=== PATIENT | female | born 1955 | race Caucasian/White ===

== ENCOUNTER → 2018-02-21 | Outpatient (CLI) | payer MEDICARE ==
--- NOTE | 2018-02-21 15:46 | XR ---
EXAMINATION TYPE: XR foot complete RT DATE OF EXAM: 02/21/2018 CLINICAL HISTORY: Right foot pain after fall injury 2 weeks ago. TECHNIQUE: Frontal, lateral, and oblique images of the right foot are obtained. COMPARISON: None FINDINGS: There is no acute fracture/dislocation evident in the right foot. There is flexion and jules us positioning distal third through fifth toes. There is moderate to large size inferior calcaneal sp ur. Some calcification along distal Achilles tendon is noted. Mild diffuse subcutaneous edema is pres ent. IMPRESSION: There is no acute fracture or dislocation in the right foot.
== END | disposition home or self-care (01) ==
LOC: RADXRYALE 15:29
PROVIDERS: ATTEND Internal Medicine
DX: M79.671 Pain in right foot (principal)

== ENCOUNTER → 2018-05-12 | Outpatient (CLI) | payer MEDICARE ==
--- NOTE | 2018-05-12 08:00 | MR ---
EXAMINATION TYPE: MR knee LT wo con DATE OF EXAM: 05/12/2018 COMPARISON: NONE HISTORY: Pain in left knee per order. Recent fall injury with pain, swelling, and locking sensation p er patient. TECHNIQUE: Multiplanar, multisequence images of the knee is performed without IV contrast. FINDINGS: Exam noted suboptimal finger to patient's large body habitus MEDIAL MENISCUS: Anterior horn is intact without tear. Posterior horn has oblique signal extending to superior and inferior articular surfaces sagittal image 20. LATERAL MENISCUS: Anterior and posterior horns are intact without tear. CRUCIATE LIGAMENTS: The anterior and posterior cruciate ligaments are intact. Increased signal and th ickening of the anterior cruciate ligament is noted. COLLATERAL LIGAMENTS: The medial collateral ligament and lateral collateral ligament complex are inta ct. There is increased fluid signal surrounding medial collateral ligament particularly more anterior fibers. EXTENSOR MECHANISM: Visualized quadriceps and patellar tendons are intact. EFFUSION: There is fairly moderate to large size suprapatellar joint effusion. POPLITEAL CYST: There is moderate size popliteal/mckinley cyst measuring 5.8 cm long axis sagittal image 18 with ill-defined surrounding fluid extending posteriorly and inferiorly. TRICOMPARTMENT SPACES: There is moderate to severe narrowing patellofemoral compartment with mild spu rring. There is mild to moderate narrowing medial tibiofemoral compartment with mild spurring and mil d narrowing and spurring lateral tibiofemoral compartment. CARTILAGE: Chondromalacia patella is present as there is full-thickness cartilaginous loss along post erior patellar pole. There is thinning of articular cartilage medial tibiofemoral compartment without full-thickness loss. BONE MARROW SIGNAL: A 9 mm well-defined lesion of T1 hypointensity and T2 hyperintensity distal later al femoral metaphysis coronal image 12 is presumed benign. There is reactive edema and/or subchondral cystic change along posterior patellar pole. OTHER: No additional significant abnormality is appreciated. IMPRESSION: 1. Tricompartment degenerative changes with moderate to advanced patellofemoral joint arthropathy and full-thickness chondromalacia patella with reactive osseous changes noted as detailed above. 2. Mild to moderate MCL sprain injury. 3. Full-thickness tear posterior horn of medial meniscus. 4. Myxoid degeneration ACL. 5. Moderate to large size suprapatellar joint effusion. 6. Moderate-sized leaking popliteal cyst.
== END | disposition home or self-care (01) ==
LOC: RADMRIMAIN 07:09
PROVIDERS: ATTEND Orthopaedic Surgery
DX: S83.412A Sprain of medial collateral ligament of left knee, initial encounter (principal); S83.242A Other tear of medial meniscus, current injury, left knee, initial encounter; M17.12 Unilateral primary osteoarthritis, left knee; M22.42 Chondromalacia patellae, left knee; M71.22 Synovial cyst of popliteal space [Baker], left knee

== ENCOUNTER 2018-07-12 18:28 | Emergency (ER) | payer MEDICARE ==
[2018-07-12 18:38] VITALS: TEMP 97.8
--- NOTE | 2018-07-12 18:53 | ED ---
Recheck HPI - General Chief Complaint: Recheck/Abnormal Lab/Rx Stated Complaint: High BP Time Seen by Provider: 07/12/18 18:50 Source: patient, RN notes reviewed, old records reviewed Mode of arrival: ambulatory Limitations: no limitations - History of Present Illness Initial Comments: This is a 8-year-old female the ER for evaluation. She presents today for evaluation of elevated blood pressure. She states she is always and borderline hypertensive although she takes no medication for blood pressure. Patient was seen her dentist IN the last 2 days to evaluate possibly to extract the tooth, blood pressure was abnormally high yesterday she went home to try and rest and even higher today. Patient denies any symptoms, is asymptomatic with no com plaints of shortness of breath chest pain headache or abdominal pain. MD Complaint: other (Abnormal blood pressure) -: unknown (At least 2 days) Returns Today for: Called Because of Abnormal Lab/Test (Sent to ER for evaluation of abnormal blood pressure) Symptoms Since Prior Visit: no new symptoms Associated Symptoms: none - Related Data Home Medications Medication Instructions Recorded Confirmed Acetaminophen Tab [Tylenol Tab] 1,000 mg PO Q6H PRN 07/12/18 07/12/18 Amoxicillin 500 mg PO Q8H 07/12/18 07/12/18 Fluticasone Nasal [place] [Flonase 2 spr EA NOSTRIL DAILY 07/12/18 07/12/18 Nasal [place]] Ibuprofen [Motrin] 800 mg PO Q6H PRN 07/12/18 07/12/18 Loratadine [Claritin] 10 mg PO DAILY 07/12/18 07/12/18 Magnesium Citrate 125 mg PO DAILY 07/12/18 07/12/18 Multivitamins, Thera [Multivitamin 1 tab PO DAILY 07/12/18 07/12/18 (formulary)] Allergies Allergy/AdvReac Type Severity Reaction Status Date / Time No Known Allergies Allergy Verified 07/12/18 19:03 Review of Systems ROS Statement: Those systems with pertinent positive or pertinent negative responses have been documented in the HPI. ROS Other: All systems not noted in ROS Statement are negative. Past Medical History Past Medical History: No Reported History History of Any Multi-Drug Resistant Organisms: None Reported Past Surgical History: Cholecystectomy, Hysterectomy Past Psychological History: No Psychological Hx Reported Smoking Status: Current every day smoker Past Alcohol Use History: Occasional Past Drug Use History: None Reported General Exam Limitations: no limitations General appearance: alert, in no apparent distress Head exam: Present: atraumatic, normocephalic, normal inspection Eye exam: Present: normal appearance, PERRL, EOMI. Absent: scleral icterus, conjunctival injection, periorbital swelling ENT exam: Present: normal exam, mucous membranes moist Neck exam: Present: normal inspection. Absent: tenderness, meningismus, lymphadenopathy Respiratory exam: Present: normal lung sounds bilaterally. Absent: respiratory distress, wheezes, rales, rhonchi, stridor Cardiovascular Exam: Present: regular rate, normal rhythm, normal heart sounds. Absent: systolic murmur, diastolic murmur, rubs, gallop, clicks GI/Abdominal exam: Present: soft, normal bowel sounds. Absent: distended, tend erness, guarding, rebound, rigid Extremities exam: Present: normal inspection, full ROM, normal capillary refill. Absent: tenderness, pedal edema, joint swelling, calf tenderness Back exam: Present: normal inspection Neurological exam: Present: alert, oriented X3, CN II-XII intact Psychiatric exam: Present: normal affect, normal mood Skin exam: Present: warm, dry, intact, normal color. Absent: rash Course Vital Signs 07/12/18 07/12/18 18:35 20:15 Temperature 97.8 F Pulse Rate 66 54 L Respiratory 16 20 Rate Blood Pressure 208/97 197/83 O2 Sat by Pulse 100 96 Oximetry - Reevaluation(s) Reevaluation #1: 07/12/18 20:00 Medical records reviewed Reevaluation #2: 07/12/18 20:00 Patient's blood pressures improved here in the ER Reevaluation #3: 07/12/18 20:00 Spoke with patient regarding hypertension, patient can be discharged home with blood pressure medication Medical Decision Making - Medical Decision Making 52 female the ER with hypertension, new onset hypertension needing treatment with 2 positive elevated blood pressure readings at separate by date and time. will discharge on blood pressure medication - EKG Data -: EKG Interpreted by Me (EKG shows sinus tachycardia rate of 56, IL 154, QRS 76, QTc 424) Disposition Clinical Impression: Hypertension Disposition: HOME SELF-CARE Condition: Good Instructions (If sedation given, give patient instructions): Hypertension (ED) Is patient prescribed a controlled substance at d/c from ED?: No Referrals: Soila Mcgregor MD [Primary Care Provider] - 1-2 days
[2018-07-12] MEDS ORDERED: SODIUM CHLORIDE 0.9% 1,000 ML IV STA (19:34)
[2018-07-12] MEDS ORDERED: LABETALOL SYRINGE 5 MG/ML IVP STA (19:38)
[2018-07-12 20:34] LABS: Anisocytosis Slight; Basophils # (A) 0.1 k/uL (0-0.2); Basophils % (A) 1 %; Eosinophils # (A) 0.2 k/uL (0-0.7); Eosinophils % (A) 3 %; HCT 42.1 % (34.0-46.0); HGB 12.9 gm/dL (11.4-16.0); Hypochromasia Slight; Lymphocytes # (A) 2.9 k/uL (1.0-4.8); Lymphocytes % (A) 39 %; MCH 26.6 pg (25.0-35.0); MCHC 30.6 g/dL (31.0-37.0); Mean Platelet Volume 8.9; Monocytes # (A) 0.4 k/uL (0-1.0); Monocytes % (A) 5 %; Neutrophils # (A) 3.7 k/uL (1.3-7.7); Neutrophils % (A) 50 %; Platelet Count 242 k/uL (150-450); RBC 4.84 m/uL (3.80-5.40); RDW 16.5 % (11.5-15.5); WBC 7.4 k/uL (3.8-10.6)
[2018-07-12 20:44] LABS: ALT 41 U/L (9-52); AST 42 U/L (14-36); Albumin 3.9 g/dL (3.5-5.0); Alkaline Phosphatase 114 U/L (38-126); Anion Gap 9 mmol/L; Blood Urea Nitrogen 14 mg/dL (7-17); Calcium 9.2 mg/dL (8.4-10.2); Carbon Dioxide 23 mmol/L (22-30); Chloride 108 mmol/L (98-107); Glucose 87 mg/dL (74-99); Magnesium 2.2 mg/dL (1.6-2.3); Phosphorus 4.1 mg/dL (2.5-4.5); Potassium 4.8 mmol/L (3.5-5.1); Sodium 140 mmol/L (137-145); Total Bilirubin 0.6 mg/dL (0.2-1.3); Total Protein 7.2 g/dL (6.3-8.2)
[2018-07-12 21:41] VITALS: BP 156/78; PULSE 51; RESP 14
== END 2018-07-12 21:56 | disposition home or self-care (01) ==
LOC: EC 18:28
DX: I10 Essential (primary) hypertension (principal); R00.0 Tachycardia, unspecified; F17.200 Nicotine dependence, unspecified, uncomplicated; Z79.51 Long term (current) use of inhaled steroids; Z79.899 Other long term (current) drug therapy
CPT/HCPCS: 36415; 80053; 83735; 84100; 84484; 85025; 93005; 96361; 96374; 99284

== ENCOUNTER → 2022-07-19 | Outpatient (CLI) | payer MEDICARE ==
--- NOTE | 2022-07-20 09:48 | CA ---
Transthoracic Echo Report Name: Didi Jensen Age: 66 Gender: F : 1955 Exam Date: 07/19/2022 12:34 Exam Location: [facility] Ht (in): Wt (lb): Ordering Physician: Soila Mcgregor MD Attending/Referring Phys: Soila Mcgregor MD [place] Program Coordinator Dianelys Swain, [facility] Procedure CPT: Indications: R01.1 Cardiac Hx: Technical Quality: Fair Contrast 1: Total Dose (mL): Contrast 2: Total Dose (mL): MEASUREMENTS (Male / Female) Normal Values 2D ECHO LV Diastolic Diameter PLAX 3.9 cm 4.2 - 5.9 / 3.9 - 5.3 cm LV Systolic Diameter PLAX 2.3 cm IVS Diastolic Thickness 2.1 cm 0.6 - 1.0 / 0.6 - 0.9 cm LA Volume 99.2 cm??? 18 - 58 / 22 - 52 cm??? M-MODE Aortic Root Diameter MM 2.4 cm AV Cusp Separation MM 1.2 cm DOPPLER AV Peak Velocity 161.8 cm/s AV Peak Gradient 10.5 mmHg LVOT Peak Velocity 122.3 cm/s LVOT Peak Gradient 6.0 mmHg MV Area PHT 6.7 cm??? MR Peak Velocity 604.1 cm/s MR Peak Gradient 146.0 mmHg Mitral E Point Velocity 90.5 cm/s Mitral A Point Velocity 63.6 cm/s Mitral E to A Ratio 1.4 MV Deceleration Time 113.5 ms TR Peak Velocity 263.9 cm/s TR Peak Gradient 27.9 mmHg Right Atrial Pressure 3.0 mmHg Pulmonary Artery Systolic Pressu 30.9 mmHg Right Ventricular Systolic Press 30.9 mmHg FINDINGS Left Ventricle Severely increased septal wall thickness and posterior wall thickness. Left ventricular ejection fraction is estimated at 55-60 %. Right Ventricle Normal right ventricular size and function. Right ventricular systolic pressure within normal limits. Right Atrium Normal right atrial size. Left Atrium Severely increased left atrial volume. Mitral Valve Mitral valve thickened. Moderate mitral regurgitation. Aortic Valve Trileaflet aortic valve. No aortic regurgitation. No aortic stenosis. Tricuspid Valve Structurally normal tricuspid valve. Mild tricuspid regurgitation. Pulmonic Valve Structurally normal pulmonic valve. Mild pulmonic regurgitation. Pericardium No pericardial or pleural effusion. Aorta Normal size aortic root and proximal ascending aorta. CONCLUSIONS Normal left frontal size and systolic function with mild to moderate concentric LVH. Left atrium is enlarged. There is mild to moderate mitral regurgitation. No significant pulmonary hypertension and no pericardial effusion Previewed by: Dr. Rogelio Melgar MD (Electronically Signed) Final Date: 20 July 2022 09:47
== END | disposition home or self-care (01) ==
LOC: RADECHMAIN 12:29
PROVIDERS: ATTEND Internal Medicine
DX: I07.1 Rheumatic tricuspid insufficiency (principal); R01.1 Cardiac murmur, unspecified
CPT/HCPCS: 93306

== ENCOUNTER → 2022-10-15 | Outpatient (CLI) | payer MEDICARE ==
--- NOTE | 2022-10-15 13:01 | MR ---
EXAMINATION TYPE: MR knee RT wo con DATE OF EXAM: 10/15/2022 COMPARISON: Prior MRI right knee November 20, 2015. Outside right knee x-ray October 01, 2022 HISTORY: Right knee pain due to fall. TECHNIQUE: Multiplanar, multisequence images of the knee is performed without IV contrast. FINDINGS: Exam is suboptimal secondary to patient's large body habitus MEDIAL MENISCUS: Horizontal increased signal extends from anterior through posterior horns through th e central body on current study more prominent versus prior. LATERAL MENISCUS: Some faint horizontal increased signal through the lateral meniscus is redemonstrat ed. This does not definitively extend to articular surface CRUCIATE LIGAMENTS: The posterior cruciate ligament is intact and unremarkable. There is more promine nt increased signal and fanning of fibers of the anterior cruciate ligament noted. COLLATERAL LIGAMENTS: The medial collateral ligament and lateral collateral ligament complex are inta ct and unremarkable. EXTENSOR MECHANISM: Visualized quadriceps and patellar tendons are intact. EFFUSION: No significant suprapatellar joint effusion. POPLITEAL CYST: No popliteal/mckinley cyst. TRICOMPARTMENT SPACES: Moderate to severe narrowing patellofemoral compartment redemonstrated with mi ld spurring. Mild to moderate spurring and narrowing medial lateral tibiofemoral compartments redemon strated. CARTILAGE: Significant chondromalacia patella redemonstrated with full-thickness cartilaginous loss l ess than posterior patellar pole again seen. There is no focal cartilaginous loss distal medial femor al condyle level with full-thickness defect now present measuring 1.0 cm AP diameter sagittal image 1 2 BONE MARROW SIGNAL: Marked heterogeneous increased T2 signal along the posterior patellar pole is red emonstrated. Subchondral cystic change central tibia redemonstrated. OTHER: No additional significant abnormality is appreciated. IMPRESSION: 1. Tricompartment degenerative changes redemonstrated as detailed above. Advanced findings patellofem oral compartment again seen similar to prior. Increasing degenerative change medial tibiofemoral comp artment noted. 2. At least intrasubstance tear throughout the medial meniscus is more prominent versus prior exam. 3. Redemonstration of at least an intrasubstance tear throughout the entire lateral meniscus similar to prior. 4. Worsening myxoid degeneration and/or partial tearing of the anterior cruciate ligament.
== END | disposition home or self-care (01) ==
LOC: RADMRIMAIN 10:26
PROVIDERS: ATTEND Orthopaedic Surgery
DX: M17.11 Unilateral primary osteoarthritis, right knee (principal); S83.511A Sprain of anterior cruciate ligament of right knee, initial encounter; X58.XXXA Exposure to other specified factors, initial encounter; W19.XXXA Unspecified fall, initial encounter

== ENCOUNTER → 2022-11-03 | Outpatient (CLI) | payer MEDICARE ==
[2022-11-03 16:16] LABS: Basophils # (A) 0.03 X 10*3/uL (0.00-0.10); Basophils % (A) 0.4 %; Eosinophils # (A) 0.13 X 10*3/uL (0.04-0.35); Eosinophils % (A) 1.8 %; HCT 44.1 % (37.2-46.3); HGB 13.9 d/dL (12.0-15.0); Lymphocytes # (A) 2.24 X 10*3/uL (0.90-5.00); Lymphocytes % (A) 30.6 %; MCH 30.2 pg (27.0-32.0); MCHC 31.5 d/dL (32.0-37.0); MCV 95.9 FL (80.0-97.0); Mean Platelet Volume 12.8 FL (9.5-12.2); Monocytes # (A) 0.48 X 10*3/uL (0.20-1.00); Monocytes % (A) 6.6 %; NRBC Per 100 WBC 0 X 10*3/uL (0.00-0.01); Neutrophils % (A) 60.2 %; Platelet Count 214 X 10*3/uL (140-440); RDW 14.3 % (11.5-14.5); WBC 7.31 X 10*3/uL (4.50-10.00)
[2022-11-03 17:25] LABS: Anion Gap 10.4 mmol/L (4.00-12.00); Carbon Dioxide 24.6 mmol/L (21.6-31.8); Potassium 4.2 mmol/L (3.5-5.5)
== END | disposition home or self-care (01) ==
LOC: LABPAT 10:34
PROVIDERS: ATTEND Orthopaedic Surgery
DX: Z01.818 Encounter for other preprocedural examination (principal); M23.91 Unspecified internal derangement of right knee; R94.31 Abnormal electrocardiogram [ECG] [EKG]
CPT/HCPCS: 36415; 80051; 85025; 93005

== ENCOUNTER 2022-11-17 06:52 | Day surgery (SDC) | payer MEDICARE ==
[2022-11-12 09:03] VITALS: BMI 37.4
[2022-11-17] MEDS ORDERED: HYDROmorphone 0.5 MG/0.5 ML SYRINGE IVP PRN (07:06)
[2022-11-17] MEDS ORDERED: LACTATED RINGERS 1,000 ML IV SCH (07:06)
[2022-11-17] MEDS ORDERED: DEXAMETHASONE SOD PHOSPHATE 4 MG/ML 1 ML VIAL IV ONE (07:06)
[2022-11-17] MEDS ORDERED: droPERidol 5 MG/2 ML VIAL IVP ONE (07:06)
[2022-11-17] MEDS ORDERED: ONDANSETRON 4 MG/2 ML VIAL IVP ONE (07:06)
[2022-11-17] MEDS ORDERED: LIDOCAINE 1% (10MG/ML) FOR IV START INTRADERMA PRN (07:06)
--- NOTE | 2022-11-17 07:34 | HP ---
HISTORY AND PHYSICAL DATE OF SURGERY: Scheduled for 11/17/2022. HISTORY OF PRESENT ILLNESS: Didi Jensen is a 67-year-old patient seen with progressive right knee pain. We discussed options. She elected to proceed with right knee arthroscopy. Consent was obtained. PAST MEDICAL HISTORY: Fibromyalgia, hypertension, and COPD. PAST SURGICAL HISTORY: Abdominoplasty, hysterectomy, cholecystectomy, and bladder sling. DAILY MEDICATIONS: 1. Lisinopril. 2. Potassium. 3. Ibuprofen. 4. Tylenol. ALLERGIES: None. SOCIAL HISTORY: She denies current tobacco use. PHYSICAL EVALUATION OF THE RIGHT KNEE: Range of motion is 0 to 100 degrees. Mild effusion. Tenderness along the medial and lateral joint lines. Positive medial Cheryl's. Positive lateral Cheryl's. Ligaments are stable. Hip rotation is without pain. Her distal neurovascular exam is intact. IMAGING STUDIES: Radiographs of the right knee revealed moderate osteoarthritis involving the patellofemoral compartment. MRI right knee revealed medial and lateral meniscal tears and patellofemoral compartment osteoarthritis. IMPRESSION: 1. Internal derangement of right knee with medial and lateral meniscal tears. 2. Right knee patellofemoral compartment osteoarthritis. 3. Hypertension. PLAN: Right knee arthroscopy with partial medial/lateral meniscectomy and debridement. MMODL / IJN: [id number] /
[2022-11-17] MEDS ORDERED: PHENYLEPHRINE-0.9% NACL SYG 1,000 MCG/10 ML SYRINGE ONE (08:26)
[2022-11-17] MEDS ORDERED: fentaNYL (PF) 50 MCG/ML 2 ML AMP ONE (08:26)
[2022-11-17] MEDS ORDERED: PROPOFOL 10 MG/ML 20 ML VIAL IV ONE (08:26)
[2022-11-17] MEDS ORDERED: LIDOCAINE 2% INJ 20 MG/ML (2 ML VIAL) ONE (08:26)
[2022-11-17] MEDS ORDERED: GLYCOPYRROLATE 0.2 MG/ML 2 ML VIAL ONE (08:26)
[2022-11-17] MEDS ORDERED: MIDAZOLAM 2 MG/2 ML VIAL ONE (08:26)
[2022-11-17] MEDS ORDERED: BUPIVACAINE (PF) 0.25% 30 ML VIAL SQ ONE (08:56)
--- NOTE | 2022-11-17 09:18 | P.OP ---
Date of Procedure: 11/17/22 Preoperative Diagnosis: Internal derangement right knee Postoperative Diagnosis: 1. Tear medial and lateral meniscus right knee 2. Grade 3/4 chondromalacia medial femoral condyle right knee 3. Reactive synovitis medial, lateral and suprapatellar compartments right knee Procedure(s) Performed: 1. Arthroscopic partial medial and lateral meniscectomy right knee 2. Arthroscopic microfracture medial femoral condyle right knee 3. Arthroscopic partial synovectomy medial, lateral and suprapatellar compartments right knee Anesthesia: RAYA, local Surgeon: Greg Adkins Estimated Blood Loss (ml): 8 Pathology: none sent Condition: stable Disposition: PACU Indications for Procedure: 67-year-old patient seen with progressive right knee pain. After having treatment options discussed, she elected to proceed with arthroscopy. Operative Findings: see description of procedure Description of Procedure: Patient was taken to the operative suite. Patient underwent a general anesthetic by the department of anesthesia. Patient was given preoperative antibiotics. The right lower extremity was placed in a well-padded arthroscopic leg gomez. The right leg was prepped and draped in the normal sterile orthopedic fashion. A lateral parapatellar and suprapatellar incision was made. Trochars were inserted. Arthroscopy was initiated. Suprapatellar pouch revealed diffuse thick reactive synovitis. The patellofemoral joint appeared to articulate congruently. There was grade 1 malacia of the patella without tears. The scope was guided into the medial gutter. No loose body or plica were identified. The scope was then guided into the medial compartment. A medial parapatellar incision was made. Trocar inserted followed by probe. There was a posterior horn medial meniscal tear. There was grade 3/4 chondromalacia changes of the medial femoral condyle with some osteochondral flap tears. There was thick reactive synovitis anteriorly. I performed a partial medial meniscectomy getting down to stable meniscal tissue. I performed a chondroplasty of the medial femoral condyle getting down to stable osteochondral tissue. I performed a partial synovectomy decompressing the thick reactive synovitis. I noted a small area of exposed bone along the weightbearing surface medial femoral condyle. I now introduced a microfracture awl and I performed a microfracture to that area penetrating the bone with resultant bleeding at the microfracture site. The residual meniscus was stable. The residual osteochondral surface was stable. There was good decompression of the synovitis. Scope and probe were then guided into the intercondylar notch. Cruciates were identified, probed and found to be stable. The scope and probe were then guided into lateral compartment. There was a complex tear along the midbody lateral meniscus extending to the posterior horn. There was grade 2 chondromalacia of the lateral femoral condyle and tibial plateau without significant osteochondral tears. There was some thick reactive synovitis anteriorly. I performed a partial lateral meniscectomy getting down to stable meniscal tissue. I performed a partial synovectomy decompressing the reactive synovitis. The residual meniscus was stable. There was good decompression of the synovitis. The scope was in guided back into the suprapatellar compartment. I introduced a motorized shaver into the suprapatellar compartment. I debrided some piecemeal fragments of meniscus that I encountered. I I now performed a partial synovectomy decompressing the thick reactive synovitis. Shaver was now removed. There was good decompression of the synovitis. I took one more look on the entire knee no residual debris. Instruments were now removed from the joint. The joint was infiltrated with .25% Marcaine. Steri-Strips were applied to the portal sites. Sterile dressings were applied. The patient was placed into a ROSE hose. No tourniquet was utilized. The patient was awakened, transferred to a bed and taken to recovery stable satisfactory condition.
[2022-11-17 09:20] VITALS: TEMP 97.4
[2022-11-17] MEDS ORDERED: LACTATED RINGERS 1,000 ML IV ONE (09:53)
[2022-11-17] MEDS ORDERED: HYDROcodone/APAP 5-325MG 1 EACH TAB ONE (10:17)
[2022-11-17] MEDS ORDERED: HYDROcodone/APAP 5-325MG 1 EACH TAB PO ONE (10:18)
[2022-11-17 10:23] VITALS: RESP 18
[2022-11-17 10:33] VITALS: BP 150/86; PULSE 62
== END 2022-11-17 11:13 | disposition home or self-care (01) ==
LOC: OR 06:52
PROVIDERS: ATTEND Orthopaedic Surgery
DX: S83.281A Other tear of lateral meniscus, current injury, right knee, initial encounter (principal); M94.261 Chondromalacia, right knee; M65.861 Other synovitis and tenosynovitis, right lower leg; J44.9 Chronic obstructive pulmonary disease, unspecified; M17.11 Unilateral primary osteoarthritis, right knee; I10 Essential (primary) hypertension; Z90.710 Acquired absence of both cervix and uterus; Z90.49 Acquired absence of other specified parts of digestive tract; X58.XXXA Exposure to other specified factors, initial encounter; Z79.899 Other long term (current) drug therapy
CPT/HCPCS: 29880; 29879; J2250; J1100; J0690; J2405; J3010; J2704; J1170; J2001; J2371; J0665

== ENCOUNTER → 2022-12-29 | Outpatient (CLI) | payer MEDICARE ==
--- NOTE | 2022-12-29 22:21 | FL ---
EXAMINATION TYPE: FL barium swallow DATE OF EXAM: 12/29/2022 COMPARISON: None HISTORY: Mera-en-Y, difficulty swallowing TECHNIQUE: A single contrast Limited esophagram/UGI study is performed with Gastrografin. FINDINGS: Tertiary contractions are noted in the distal esophagus. Contrast passes through the gastroesophageal junction without hesitancy or stenosis. Small hiatal hernia may be present. Contrast passes easily t hrough the Mera-en-Y to the proximal jejunum IMPRESSION: 1. No suspicious persistent stenosis within the esophagus or gastroesophageal junction. 2. No stenosis at the Mera-en-Y anastomosis. 3. Mild presbyesophagus
== END | disposition home or self-care (01) ==
LOC: RADUSWWP 11:00
PROVIDERS: ATTEND Surgery
DX: Z01.818 Encounter for other preprocedural examination (principal); K44.9 Diaphragmatic hernia without obstruction or gangrene; K22.89 Other specified disease of esophagus; R13.10 Dysphagia, unspecified
CPT/HCPCS: 74220; Q9963

== ENCOUNTER 2023-07-25 10:39 | Day surgery (SDC) | payer MEDICARE ==
[2023-07-20 13:53] VITALS: BMI 37.4
[~2023-07-25 10:39] MED LIST: ALPRAZolam 0.25 MG TAB PO PRN; ALPRAZolam 0.5 MG TAB PO PRN; ASPIRIN 325 MG TAB PO STA; ATORVASTATIN 80 MG TAB PO STA; HEPARIN SODIUM,PORCINE (1 ML) 2,500 UNIT in SODIUM CHLORIDE 0.9% 250 ML IRRIGATION PRN; HEPARIN SODIUM,PORCINE 10,000 UNIT in SODIUM CHLORIDE 0.9% 1,000 ML IRRIGATION PRN; NITROGLYCERIN SL TABS 0.4 MG TAB SUBLINGUAL PRN
[2023-07-25] MEDS: SODIUM CHLORIDE 0.9% 1,000 ML in EMPTY BAG 1 BAG IV SCH (11:02)
[2023-07-25 11:37] VITALS: TEMP 98.8
[2023-07-25] MEDS ORDERED: HEPARIN SODIUM 1,000 UN/ML (10ML VL) ONE ×2 (11:57→12:12)
[2023-07-25] MEDS ORDERED: LIDOCAINE 1% INJ 10MG/ML (20 ML MDV) ONE (11:57)
[2023-07-25] MEDS ORDERED: VERAPAMIL 2.5 MG/ML 2 ML AMP ONE (11:57)
[2023-07-25] MEDS ORDERED: fentaNYL (PF) 50 MCG/ML 2 ML AMP ONE (12:11)
[2023-07-25] MEDS: fentaNYL (PF) 50 MCG/ML 2 ML AMP IVP ONE (12:22)
[2023-07-25] MEDS: MIDAZOLAM 2 MG/2 ML VIAL IVP ONE (12:22)
[2023-07-25] MEDS: LIDOCAINE 1% INJ 10MG/ML (30 ML VIAL-PF) SQ ONE (12:25)
[2023-07-25] MEDS: VERAPAMIL SYRINGE (5 MG/10 ML) INTRAARTER ONE (12:26)
[2023-07-25] MEDS: HEPARIN SODIUM 1,000 UN/ML (10ML VL) IVP ONE (12:27)
--- NOTE | 2023-07-25 12:42 | P.CARDCATH ---
Description of Procedure: PROCEDURES PERFORMED: Left heart catheterization, bilateral coronary angiography, ultrasound guided arterial access INDICATION: abnormal stress test CONSENT:I have discussed the risks, benefits and alternative therapies for the above-mentioned procedure and for both sedation/analgesia as well as necessary blood product administration, if indicated, as they pertain to this patient. The patient has indicated understanding and acceptance of the risks and procedures discussed. PROCEDURE: After the risks, benefits and alternatives of the above mentioned procedure explained in detail with the patient, informed consent was obtained. Patient was taken to the catheterization lab and prepped and draped in usual fashion. Ultrasound guidance was used to assess for arterial access. 1% lidocaine was used to anesthetize the right radial artery. A 6-Uzbek sheath was placed in the right radial artery using modified Seldinger technique and ultrasound guidance. Left coronary angiography was performed with a 5-Uzbek JL 3.5 catheter and right coronary angiography was performed with a 5-Uzbek FR5 catheter in various views. A 5-Uzbek FR5 catheter was inserted into the left ventricle and pressure measurements were obtained. The right radial sheath was removed and a TR band was placed with hemostasis achieved. The patient to lerated the procedure well. Patient was transported back to the post catheterization holding area in stable condition. Conscious Sedation: Patient was monitored under the direct supervision of myself for conscious sedation using Versed and fentanyl for a total duration of 11 minutes HEMODYNAMICS: aorta: 153/72 LV: 145/6, LVEDP 17, no significant gradient with pullback across the aortic valve SELECTIVE CORONARY ARTERIOGRAPHY: LEFT MAIN: The left main is a large caliber vessel which bifurcates into the LAD and circumflex. There is no significant stenosis. LEFT ANTERIOR DESCENDING CORONARY ARTERY: LAD is a large caliber vessel which wraps around to the apex. There are mild luminal irregularities of the LAD, 10- 20%. LEFT CIRCUMFLEX CORONARY ARTERY: Left circumflex is a moderate caliber vessel with mild luminal irregularities. RIGHT CORONARY ARTERY: The right coronary artery is a large caliber vessel which gives off a PDA and PLV branch and is the dominant vessel. There is a proximal and mid RCA 20-30% stenosis.. FINAL IMPRESSION: 1. Mild CAD as described above with 10-20% LAD stenosis, 20-30% mid RCA stenosis 2. Mildly elevated left sided filling pressures PLAN: 1. Aggressive risk factor modification per most recent ACC/AHA guidelines. 2. Follow-up in the office in 1-2 weeks.
[2023-07-25] MEDS: IOPAMIDOL-370 100ML BTL INJ ONE (12:51)
[2023-07-25 17:04] VITALS: BP 138/65; PULSE 67; RESP 16
== END 2023-07-25 16:44 | disposition home or self-care (01) ==
LOC: CATHCVL 10:39
PROVIDERS: ATTEND Internal Medicine
DX: I25.10 Atherosclerotic heart disease of native coronary artery without angina pectoris (principal); I10 Essential (primary) hypertension; J44.9 Chronic obstructive pulmonary disease, unspecified; F17.210 Nicotine dependence, cigarettes, uncomplicated; Z82.49 Family history of ischemic heart disease and other diseases of the circulatory system; Z79.899 Other long term (current) drug therapy
CPT/HCPCS: 93458; 76937; C1769; C1894; J2250; J2001; J3010; J1644; Q9967

== ENCOUNTER 2024-02-20 06:03 | Day surgery (SDC) | payer MEDICARE ==
[2024-02-16 10:19] VITALS: BMI 39.6
[~2024-02-20 06:03] MED LIST changes: -ALPRAZolam 0.25 MG TAB PO PRN; -ALPRAZolam 0.5 MG TAB PO PRN; -ASPIRIN 325 MG TAB PO STA; -ATORVASTATIN 80 MG TAB PO STA; -HEPARIN SODIUM,PORCINE (1 ML) 2,500 UNIT in SODIUM CHLORIDE 0.9% 250 ML IRRIGATION PRN; -HEPARIN SODIUM,PORCINE 10,000 UNIT in SODIUM CHLORIDE 0.9% 1,000 ML IRRIGATION PRN; -NITROGLYCERIN SL TABS 0.4 MG TAB SUBLINGUAL PRN; +SODIUM CHLORIDE 0.9% 500 ML 500 ML IV SCH
[2024-02-20] MEDS ORDERED: LACTATED RINGERS 1,000 ML IV SCH (06:36)
[2024-02-20 06:46] VITALS: BP 152/75; PULSE 46; RESP 16; TEMP 97
== END 2024-02-20 07:45 | disposition home or self-care (01) ==
LOC: OR 06:03
PROVIDERS: ATTEND Internal Medicine
DX: I48.11 Longstanding persistent atrial fibrillation (principal); I10 Essential (primary) hypertension; J44.9 Chronic obstructive pulmonary disease, unspecified; R06.00 Dyspnea, unspecified; G47.33 Obstructive sleep apnea (adult) (pediatric); R00.2 Palpitations; Z87.891 Personal history of nicotine dependence

== ENCOUNTER → 2024-10-09 | Outpatient (CLI) | payer MEDICARE ==
--- NOTE | 2024-10-16 00:11 | P.PCN ---
Date of Procedure: 11/08/24 Operative Findings: Home sleep study report History This is a 69-year-old female patient who was referred to me for management of sleep apnea. The patient used to see Dr. CECIL Melgar who diagnosed this patient with obstructive sleep apnea. Urgent polysomnography was done on 06/09/2021 at [facility]. The patient was found to have an AHI of 19, worse during REM sleep with an AHI of 30.8 and worse in a supine body position with an AHI of 30.7. The sleep architecture showed some minor abnormalities with a stage I sleep accounting for 0.3%, 15.9% stage II sleep, 14.1% stage III sleep and 10.8% REM sleep. The patient spent approximately 14% of the recording time below pulse ox of 89%. No treatment was offered. 1 year following this current study, the patient was given a CPAP titration. Nevertheless, she has not started any treatment. Patient decided to come in for a second opinion regarding her need for CPAP therapy the patient clinically is doing well. She has some limited snoring. She has been told to quit breathing by family members. She goes to bed at around 11 PM and she wakes up between 530 and 6 AM in the morning. He does not take any naps during the day. Her current Madison score is quite elevated at 19. Since her original study back in 2021, the patient has gained approximately 15 pounds and her current body mass index is 43.4. No excessive utilization of alcoholic beverages or caffeinated beverages. She has history of atrial fibrillation and she has undergone ablation and current rhythm is sinus. She was given a diagnosis of asthma by Dr. CECIL Melgar and the patient was started on Trelegy Ellipta. She has food allergies. No environmental allergies. No restlessness lower extremities. No grinding. No sleepwalking. No sleep talking. No anxiety or panic attacks. No significant decreased memory or concentration and her daytime functionality seems to be well-preserved. She has other comorbidities including positive GAYLE, RA, fibromyalgia, psoriasis, hyperlipidemia and paroxysmal atrial fibrillation current rhythm is sinus post ablation. Pertinent physical findings Body mass index is 43.4 Technical description The [employer] system was used to complete home sleep study. This is a type III home sleep study evaluation. The total recording duration was 7 hours and 28 minutes. This study started at 10:36 PM and ended at 6:04 AM. There was a total of 7 hours and 16 minutes of flow evaluation 7 hours and 12 minutes of oxygen saturation evaluation. This was an adequate study Results Respiratory analysis showed a total of 49 obstructive apneas and 144 obstructive hypopneas. The resulting AHI was 26.6 and this is consistent with moderately severe obstructive sleep apnea. Oxygenation analysis The baseline pulse ox while awake was 96%. Average pulse ox during sleep was 91%. Minimum pulse ox was 62% and the patient spent approximately 54 minutes of sleep time below pulse ox of 89% Cardiac summary Average heart rate was 62 with a minimum heart of 53 and maximum heart rate of 166 Assessment Obstructive sleep apnea, moderately severe, AHI was 26.6 Nocturnal oxygen desaturation secondary to above with a minimum pulse ox of 62% Known history of obstructive sleep apnea with a previous polysomnography that was done on 06/09/2021 at [facility] and her AHI was 19, worsening supine body position and worse during REM sleep. Some chronic fatigue. Madison score is at 19 Obesity with a BMI of 43.4, interval 15 pound weight gain over the past 2 years Fibromyalgia Rheumatoid arthritis Positive GAYLE Psoriasis History of atrial fibrillation post ablation current rhythm is sinus. Hyperlipidemia Hypertension History of asthma, maintained on Trelegy Ellipta Food allergies Plan The patient has considerable obstructive sleep apnea based on the current home sleep study. This disease is moderately severe and the patient is also encountering significant nocturnal oxygen saturations. I am recommending CPAP therapy for this patient. Recommend weight loss Implement good sleep hygiene measures Maintain regular sleep schedule Please comorbidities The patient will be asked to come into the sleep center to undergo an in lab CPAP titration.
== END ==
LOC: 3 N SLEEP 09-27 17:45
PROVIDERS: ATTEND Internal Medicine Critical Care Medicine
DX: G47.33 Obstructive sleep apnea (adult) (pediatric) (principal); I10 Essential (primary) hypertension; M79.7 Fibromyalgia; M06.9 Rheumatoid arthritis, unspecified; L40.9 Psoriasis, unspecified; E78.5 Hyperlipidemia, unspecified; F17.200 Nicotine dependence, unspecified, uncomplicated; R76.8 Other specified abnormal immunological findings in serum; T78.1XXA Other adverse food reactions, not elsewhere classified, initial encounter; Z87.09 Personal history of other diseases of the respiratory system; Z86.79 Personal history of other diseases of the circulatory system; Z68.41 Body mass index [BMI] 40.0-44.9, adult